=== PATIENT | female | born 1955 | race Native Hawaiian/Other Pacific Islander ===

== ENCOUNTER 2016-12-09 09:14 | Outpatient (CLI) | payer OTHER ==
[~2016-12-09 09:14] MED LIST: ALPR0.5T24 PO; LISI10TA11 PO; METO25TA4 PO; NITR0.4S2 SL; RANI150T78 PO
== END 2016-12-09 19:43 | disposition home or self-care (01) ==
LOC: US 09:14
DX: E78.4 Other hyperlipidemia (principal); I10 Essential (primary) hypertension